=== PATIENT | male | born 1965 | race African-American/Black ===

== ENCOUNTER 2016-08-12 13:52 | Emergency (ER) | payer OTHER ==
[~2016-08-12] VITALS: Ht 177.8 cm; Wt 106.6 kg
[~2016-08-12 13:52] MED LIST: BC POWDER PACK1 EAC1 PO; BENADRYL50 MG PO; BUPROPION XL150 MG PO; CYCLOBENZAPRINE10 MG PO; DESYREL 150 MG150 MG PO; ENDOCET 5-3251 EACH PO; FLEXERIL10 MG PO; GABAPENTIN100 MG PO; GEMFIBROZIL600 MG PO; HALOBETASOL PRO15 GM TP; KETOCONAZOLE60 GM TP; LISINOPRIL40 MG PO; LYRICA100 MG PO; MELOXICAM7.5 MG PO; NAPROSYN500 MG PO; NAPROXEN500 MG PO; OMEPRAZOLE20 MG PO; PEPCID20 MG PO; PERCOCET 5/31 TABLET PO; PREDNISONE10 M1 PO; QUETIAPINE; QUETIAPINE FUM100 MG; QUETIAPINE FUM100 MG PO; RANITIDINE HCL300 MG PO; ROBITUSSIN DM118 ML PO; SEROQUEL100 MG; SEROQUEL200 MG PO; SEROQUEL50 MG PO; TRAMADOL HCL50 MG PO; ZANTAC150 MG PO; ZIPRASIDONE HCL40 MG PO; ZOLPIDEM TARTRA10 MG PO; ~No Medications
[2016-08-12 15:37] LABS: HEMATOCRIT 42.3 % (38.0-50.0); MCH 31.4 PG (29.0-34.0); MCHC 32.6 G/DL (30.0-36.0); MCV 96.1 FL (86-99); MEAN PLAT.VOLUME 9.9 uM^3 (9.0-12.4); PLATELET COUNT 175 K/uL (156-360); RBC DIS.WIDTH-SD 43.8 % (39-53); WHITE BLOOD COUNT 7.1 K/uL (4.1-10.2)
[2016-08-12 15:49] LABS: CHLORIDE 108 mEq/L (99-109); POTASSIUM 4.1 mEq/L (3.7-5.4); SODIUM 142 mEq/L (136-147)
[2016-08-12 15:51] LABS: GLUCOSE 93 mg/dL (70-99)
[2016-08-12 15:53] LABS: ANION GAP 6 MEQ/L (2-14); TOTAL BILIRUBIN 0.7 mg/dL (0.0-1.0)
[2016-08-12 15:55] LABS: ALKALINE PHOSPHATASE 74 IU/L (3-129); GFR ESTIMATE (CALCULATED) > 59 mL/min/
[2016-08-12 15:56] LABS: UREA NITROGEN (BUN) 9 mg/dL (9-23)
[2016-08-12 15:57] LABS: DIRECT BILIRUBIN 0.3 mg/dL (0.0-0.3); TROP-I INTERPRETATION NEGATIVE; TROPONIN-I < 0.01 ng/mL (0.0-0.30)
[2016-08-12 15:58] LABS: LIPASE 44 U/L (1.0-51.0)
[2016-08-12] MEDS ORDERED: BENTYL20 MG PO (16:29)
[2016-08-12] MEDS ORDERED: PERCOCET 5/31 TABLET PO (16:29)
[2016-08-12] MEDS ORDERED: ZOFRAN ODT4 MG PO (16:29)
[2016-08-12 16:53] VITALS: BP 152/90
== END 2016-08-12 16:55 | disposition home or self-care (01) ==
LOC: EME 13:52
PROVIDERS: Nurse Practitioner Family
DX: R10.11 Right upper quadrant pain (principal); K80.50 Calculus of bile duct without cholangitis or cholecystitis without obstruction; F10.10 Alcohol abuse, uncomplicated; F17.200 Nicotine dependence, unspecified, uncomplicated; R42 Dizziness and giddiness; R07.9 Chest pain, unspecified; I10 Essential (primary) hypertension
CPT/HCPCS: 71020; 76705; 80048; 80076; 83690; 84484; 85027; 93005; 99281; 99284

== ENCOUNTER 2016-08-25 18:30 | Emergency (ER) | payer OTHER ==
[~2016-08-25] VITALS: Ht 177.8 cm; Wt 105.2 kg
[~2016-08-25 18:30] MED LIST changes: +BENTYL20 MG PO; +ZOFRAN ODT4 MG PO
[2016-08-25 19:40] LABS: HEMATOCRIT 46.1 % (38.0-50.0); MCH 31.7 PG (29.0-34.0); RBC DIS.WIDTH-SD 42.7 % (39-53); WHITE BLOOD COUNT 6.2 K/uL (4.1-10.2)
[2016-08-25 19:44] LABS: MEAN PLAT.VOLUME 10.1 uM^3 (9.0-12.4); PLATELET COUNT 254 K/uL (156-360)
[2016-08-25 19:48] LABS: ADD MIUA? NO; BILIRUBIN NEGATIVE; BLOOD NEGATIVE; COLOR YELLOW ((YELLOW)); GLUCOSE (STRIP) NEGATIVE; KETONES NEGATIVE; LEUKOCYTES NEGATIVE; NITRITE NEGATIVE; PROTEIN (STRIP) NEGATIVE; SPECIFIC GRAVITY 1.015 (1.000-1.030); UCUL ADDED? NO; UROBILINOGEN 0.2 MG/DL (0.2-1.0)
[2016-08-25 19:48] LABS: CHLORIDE 108 mEq/L (99-109); POTASSIUM 4.3 mEq/L (3.7-5.4); SODIUM 143 mEq/L (136-147)
[2016-08-25 19:51] LABS: GLUCOSE 97 mg/dL (70-99)
[2016-08-25 19:52] LABS: ANION GAP 8 MEQ/L (2-14)
[2016-08-25 19:53] LABS: TOTAL BILIRUBIN 0.8 mg/dL (0.0-1.0)
[2016-08-25 19:54] LABS: ALKALINE PHOSPHATASE 88 IU/L (3-129); GFR ESTIMATE (CALCULATED) 55 mL/min/
[2016-08-25 19:55] LABS: UREA NITROGEN (BUN) 8 mg/dL (9-23)
[2016-08-25 21:43] VITALS: BP 123/73
== END 2016-08-25 21:30 | disposition home or self-care (01) ==
LOC: EME 18:30 → RME 18:30
DX: K59.00 Constipation, unspecified (principal); R10.31 Right lower quadrant pain
CPT/HCPCS: 74176; 80053; 81003; 85027; 99281; 99284

== ENCOUNTER 2016-11-03 09:42 | Day surgery (SDC) | payer OTHER ==
[~2016-11-03] VITALS: Ht 177.8 cm; Wt 104.3 kg
[~2016-11-03 09:42] MED LIST changes: +NORVASC5 MG PO; +PRILOSEC20 MG PO
[2016-11-03 10:17] VITALS: BP 137/93
[2016-11-03] MEDS ORDERED: TRAMADOL HCL50 MG PO (13:35)
[2016-11-03] MEDS ORDERED: COLACE100 MG PO (13:35)
[2016-11-03 14:50] VITALS: BP 153/95
[2016-11-03 15:50] VITALS: BP 137/87
== END 2016-11-03 15:50 | disposition home or self-care (01) ==
LOC: SDC
DX: K80.10 Calculus of gallbladder with chronic cholecystitis without obstruction (principal); K42.9 Umbilical hernia without obstruction or gangrene; K76.0 Fatty (change of) liver, not elsewhere classified; K66.0 Peritoneal adhesions (postprocedural) (postinfection); I10 Essential (primary) hypertension; E78.5 Hyperlipidemia, unspecified; F17.210 Nicotine dependence, cigarettes, uncomplicated; Z88.5 Allergy status to narcotic agent; Z91.018 Allergy to other foods
CPT/HCPCS: 88304; 93005; J1100; J1170; J1885; J2250; J2405; J3010

== ENCOUNTER 2016-11-07 14:01 | Emergency (ER) | payer OTHER ==
[~2016-11-07] VITALS: Ht 177.8 cm; Wt 100.9 kg
[~2016-11-07 14:01] MED LIST changes: +COLACE100 MG PO
[2016-11-07 14:38] VITALS: BP 156/90
== END 2016-11-07 14:51 | disposition home or self-care (01) ==
LOC: EME 14:01
DX: Z09 Encounter for follow-up examination after completed treatment for conditions other than malignant neoplasm (principal); Z90.49 Acquired absence of other specified parts of digestive tract; K59.00 Constipation, unspecified
CPT/HCPCS: 99281; 99283

== ENCOUNTER 2017-01-04 12:46 | Observation (INO) | payer OTHER ==
[~2017-01-04] VITALS: Ht 177.8 cm; Wt 103.7 kg
[2017-01-04 14:25] LABS: EOSINOPHIL (%) 3.6 % (0-5); EOSINOPHIL COUNT 0.2 K/uL (0-0.3); HEMATOCRIT 41.8 % (38.0-50.0); INSTRUMENT ABS NEUTROPHIL CT 1.7 K/uL; LYMPHOCYTE COUNT 2.4 K/uL (1.0-2.8); MCH 31.9 PG (29.0-34.0); MCHC 33.5 G/DL (30.0-36.0); MCV 95.2 FL (86-99); MONOCYTE (%) 9.4 % (3-12); MONOCYTE COUNT 0.4 K/uL (0-0.8); NEUTROPHIL (%) 36.3 % (45-76); NEUTROPHIL COUNT 1.7 K/uL (1.8-6.4); PLATELET COUNT 180 K/uL (156-360); RBC DIS.WIDTH-CV 12.5 % (11.8-14.6); RBC DIS.WIDTH-SD 44.4 % (39-53); RED BLOOD COUNT 4.39 M/uL (4.00-5.50); WHITE BLOOD COUNT 4.7 K/uL (4.1-10.2)
[2017-01-04 14:36] LABS: CHLORIDE 109 mEq/L (99-109); POTASSIUM 4.3 mEq/L (3.7-5.4); SODIUM 139 mEq/L (136-147)
[2017-01-04 14:38] LABS: GLUCOSE 101 mg/dL (70-99)
[2017-01-04 14:39] LABS: ANION GAP 4 MEQ/L (2-14)
[2017-01-04 14:40] LABS: TOTAL BILIRUBIN 0.5 mg/dL (0.0-1.0)
[2017-01-04 14:41] LABS: ALKALINE PHOSPHATASE 73 IU/L (3-129)
[2017-01-04 14:42] LABS: GFR ESTIMATE (CALCULATED) > 59 mL/min/
[2017-01-04 14:43] LABS: UREA NITROGEN (BUN) 8 mg/dL (9-23)
[2017-01-04 14:45] LABS: LIPASE 37 U/L (1.0-51.0)
[2017-01-04 14:47] LABS: TROP-I INTERPRETATION NEGATIVE; TROPONIN-I < 0.01 ng/mL (0.0-0.30)
[2017-01-04 17:27] LABS: D-DIMER ELISA < 150.00 ng/mLDDU (<230)
[2017-01-04] MEDS ORDERED: ASPIRIN81 M2 PO (17:36)
[2017-01-04] MEDS ORDERED: PROAIR HFA8.5 GM IH (17:37)
[2017-01-04 18:13] VITALS: BP 157/82
[2017-01-04 18:19] LABS: ADD MIUA? NO; BILIRUBIN NEGATIVE; BLOOD NEGATIVE; COLOR YELLOW ((YELLOW)); GLUCOSE (STRIP) NEGATIVE; KETONES NEGATIVE; LEUKOCYTES NEGATIVE; NITRITE NEGATIVE; PROTEIN (STRIP) NEGATIVE; SPECIFIC GRAVITY 1.013 (1.000-1.030)
[2017-01-04 18:21] LABS: HDL CHOLESTEROL 42 MG/DL (Desirable>=40); LDL CHOLESTEROL 89 mg/dL (Desirable<100); NON-HDL CHOLESTEROL 102 mg/dL (Desirable<160); SAMPLE HEMOLYSIS CHECK 0; SAMPLE ICTERIC CHECK 0; SAMPLE LIPEMIA CHECK 0; TOTAL CHOLESTEROL 144 mg/dL (Desirable<200); TRIGLYCERIDES 64 MG/DL (Normal: <150)
[2017-01-04 19:53] VITALS: BP 119/55
[2017-01-04 20:00] VITALS: BP 127/60
[2017-01-04 20:20] LABS: TROP-I INTERPRETATION NEGATIVE; TROPONIN-I 0.02 ng/mL (0.0-0.30)
[2017-01-05] VITALS: BP 132/78
[2017-01-05 02:02] LABS: TROP-I INTERPRETATION NEGATIVE; TROPONIN-I < 0.01 ng/mL (0.0-0.30)
[2017-01-05 04:00] VITALS: BP 120/96
[2017-01-05 05:43] LABS: HEMATOCRIT 38.8 % (38.0-50.0); MCH 33.1 PG (29.0-34.0); MCV 97.2 FL (86-99); MEAN PLAT.VOLUME 10.7 uM^3 (9.0-12.4); PLATELET COUNT 176 K/uL (156-360); RBC DIS.WIDTH-CV 12.7 % (11.8-14.6); RBC DIS.WIDTH-SD 45.6 % (39-53); RED BLOOD COUNT 3.99 M/uL (4.00-5.50); WHITE BLOOD COUNT 5.3 K/uL (4.1-10.2)
[2017-01-05 05:57] LABS: ANION GAP 4 MEQ/L (2-14); CHLORIDE 108 MEQ/L (99-109); GFR ESTIMATE (CALCULATED) > 59 mL/min/; GLUCOSE 96 mg/dL (70-99); POTASSIUM 4.5 MEQ/L (3.7-5.4); SAMPLE HEMOLYSIS CHECK 0; SAMPLE ICTERIC CHECK 0; SAMPLE LIPEMIA CHECK 0; SODIUM 141 MEQ/L (136-147); UREA NITROGEN (BUN) 13 mg/dL (9-23)
[2017-01-05 07:22] VITALS: BP 115/76
[2017-01-05 16:00] VITALS: BP 151/80
[2017-01-05 18:57] VITALS: BP 140/77
[2017-01-06 00:07] VITALS: BP 133/82
[2017-01-06 04:22] VITALS: BP 121/64
[2017-01-06 12:22] VITALS: BP 131/74
== END 2017-01-06 12:32 | disposition home or self-care (01) ==
LOC: EME 12:46 → EDOF 16:41 → 5WEST 16:41 → ENRESERV 16:42 → 5WEST 18:06
PROVIDERS: Internal Medicine; Physician Assistant
DX: R07.9 Chest pain, unspecified (principal); G89.29 Other chronic pain; M54.5 Low back pain; I10 Essential (primary) hypertension; E78.5 Hyperlipidemia, unspecified; G54.2 Cervical root disorders, not elsewhere classified; Z82.49 Family history of ischemic heart disease and other diseases of the circulatory system; F17.210 Nicotine dependence, cigarettes, uncomplicated; F14.10 Cocaine abuse, uncomplicated; Z83.3 Family history of diabetes mellitus
CPT/HCPCS: 71010; 72148; 78452; 80048; 80053; 80061; 81003; 83690; 84484; 85025; 85027; 85379; 93005; 93017; 93306; 99281; 99285; A9500; G0378; G8978 GP CJ; G8979 GP CH; G8987 GO CI; G8988 GO CH; J1650; J2785

== ENCOUNTER 2017-10-30 21:28 | Emergency (ER) | payer OTHER ==
[~2017-10-30] VITALS: Ht 177.8 cm; Wt 103.1 kg
[~2017-10-30 21:28] MED LIST changes: +ASPIRIN81 M2 PO; +KLONOPIN0.5 M1 PO; +PROAIR HFA8.5 GM IH
[2017-10-30] MEDS ORDERED: ULTRACET1 TABLET PO (23:20)
[2017-10-30] MEDS ORDERED: NAPROXEN500 MG PO (23:20)
[2017-10-30] MEDS ORDERED: FLEXERIL10 MG PO (23:56)
[2017-10-31 00:10] VITALS: BP 160/94
== END 2017-10-31 00:14 | disposition home or self-care (01) ==
LOC: EME 21:28
DX: M54.31 Sciatica, right side (principal); R07.89 Other chest pain; I10 Essential (primary) hypertension; F17.200 Nicotine dependence, unspecified, uncomplicated; Z88.6 Allergy status to analgesic agent; Z88.5 Allergy status to narcotic agent
CPT/HCPCS: 71046; 72100; 73502; 93005; 99281; 99284; J3010; J8540

== ENCOUNTER 2017-12-20 15:25 | Emergency (ER) | payer OTHER ==
[~2017-12-20] VITALS: Ht 177.8 cm; Wt 102.5 kg
[~2017-12-20 15:25] MED LIST changes: +ULTRACET1 TABLET PO
[2017-12-20] MEDS ORDERED: MOTRIN800 MG PO (16:32)
[2017-12-20] MEDS ORDERED: LIDODERM 5% P1 PATCH TD (16:32)
[2017-12-20] MEDS ORDERED: FLEXERIL10 MG PO (16:32)
[2017-12-20 16:41] VITALS: BP 132/90
== END 2017-12-20 16:42 | disposition home or self-care (01) ==
LOC: EME 15:25
DX: S39.012A Strain of muscle, fascia and tendon of lower back, initial encounter (principal); M54.41 Lumbago with sciatica, right side; M54.42 Lumbago with sciatica, left side; G89.29 Other chronic pain; X58.XXXA Exposure to other specified factors, initial encounter; I10 Essential (primary) hypertension; J45.909 Unspecified asthma, uncomplicated; Z79.82 Long term (current) use of aspirin; F17.200 Nicotine dependence, unspecified, uncomplicated
CPT/HCPCS: 99281; 99283

== ENCOUNTER 2017-12-24 23:49 | Inpatient (IN) | payer OTHER ==
[~2017-12-24] VITALS: Ht 177.8 cm; Wt 101.4 kg
[~2017-12-24 23:49] MED LIST changes: +LIDODERM 5% P1 PATCH TD; +MOTRIN800 MG PO
[2017-12-25 00:43] LABS: HEMATOCRIT 43.7 % (38.0-50.0); MCH 33.1 PG (29.0-34.0); MCHC 34.3 G/DL (30.0-36.0); MCV 96.5 FL (86-99); PLATELET COUNT 202 K/uL (156-360); RBC DIS.WIDTH-CV 12.8 % (11.8-14.6); RBC DIS.WIDTH-SD 45.1 % (39-53); RED BLOOD COUNT 4.53 M/uL (4.00-5.50); WHITE BLOOD COUNT 8.8 K/uL (4.1-10.2)
[2017-12-25 00:53] LABS: CHLORIDE 116 mEq/L (99-109); POTASSIUM 4.5 mEq/L (3.7-5.4); SODIUM 147 mEq/L (136-147)
[2017-12-25 00:54] LABS: GLUCOSE 94 mg/dL (70-99)
[2017-12-25 00:58] LABS: CREATININE 2.9 mg/dL (0.6-1.3); GFR ESTIMATE (CALCULATED) 30 mL/min/ (58.99-99999)
[2017-12-25 00:59] LABS: UREA NITROGEN (BUN) 14 mg/dL (9-23)
[2017-12-25 01:04] LABS: TROP-I INTERPRETATION NEGATIVE; TROPONIN-I < 0.01 ng/mL (0.0-0.30)
[2017-12-25 02:13] LABS: SERUM ETHYL ALCOHOL 30 mg/dL
[2017-12-25 03:57] LABS: ALBUMIN 3.6 g/dL (3.2-4.8)
[2017-12-25 04:00] LABS: TOTAL PROTEIN 5.8 g/dL (6.4-8.3)
[2017-12-25 04:02] LABS: TOTAL BILIRUBIN 0.6 mg/dL (0.0-1.0)
[2017-12-25 04:03] LABS: ALKALINE PHOSPHATASE 70 IU/L (3-129)
[2017-12-25 04:05] LABS: AST (GOT) 24 IU/L (2-34)
[2017-12-25 04:06] LABS: ALT (GPT) 32 IU/L (3-49); DIRECT BILIRUBIN 0.2 mg/dL (0.0-0.3)
[2017-12-25 04:07] LABS: LIPASE 27 U/L (1.0-51.0)
[2017-12-25 04:43] LABS: URIC ACID 6.3 mg/dL (3.1-9.2)
[2017-12-25 04:44] LABS: CREATINE KINASE 150 IU/L (1-294)
[2017-12-25 05:00] VITALS: BP 115/75
[2017-12-25 07:13] VITALS: BP 127/77
[2017-12-25 08:02] LABS: TROP-I INTERPRETATION NEGATIVE; TROPONIN-I < 0.01 ng/mL (0.0-0.30)
[2017-12-25 10:58] VITALS: BP 100/58
[2017-12-25 13:27] LABS: TROP-I INTERPRETATION NEGATIVE; TROPONIN-I < 0.01 ng/mL (0.0-0.30)
[2017-12-25] MEDS ORDERED: ULTRAM50 MG PO (14:19)
[2017-12-25] MEDS ORDERED: ERGOCALCIF50000 UNIT PO (14:19)
[2017-12-25] MEDS ORDERED: LIDODERM 5% P1 PATCH TD (14:20)
[2017-12-25] MEDS ORDERED: BENTYL20 MG PO (14:21)
[2017-12-25 14:57] VITALS: BP 104/60
[2017-12-25 15:46] LABS: APPEARANCE CLEAR ((CLEAR)); BILIRUBIN NEGATIVE; BLOOD NEGATIVE; COLOR YELLOW ((YELLOW)); GLUCOSE (STRIP) NEGATIVE; KETONES NEGATIVE; LEUKOCYTES NEGATIVE; NITRITE NEGATIVE; PROTEIN (STRIP) NEGATIVE; SPECIFIC GRAVITY 1.014 (1.000-1.030); UROBILINOGEN 0.2 MG/DL (0.2-1.0)
[2017-12-25 16:18] LABS: BENZODIAZEPINES, URINE SCREEN Negative (200 ng/mL)
[2017-12-25 20:00] VITALS: BP 111/58
[2017-12-26] VITALS: BP 116/65
[2017-12-26 04:00] VITALS: BP 119/72
[2017-12-26 06:50] LABS: HEMATOCRIT 38.1 % (38.0-50.0); MCH 32.7 PG (29.0-34.0); MCHC 34.1 G/DL (30.0-36.0); MCV 95.7 FL (86-99); PLATELET COUNT 176 K/uL (156-360); RBC DIS.WIDTH-CV 12.5 % (11.8-14.6); RBC DIS.WIDTH-SD 43.8 % (39-53); RED BLOOD COUNT 3.98 M/uL (4.00-5.50); WHITE BLOOD COUNT 5.2 K/uL (4.1-10.2)
[2017-12-26 07:09] VITALS: BP 111/61
[2017-12-26 07:10] LABS: CHLORIDE 112 MEQ/L (99-109); GFR ESTIMATE (CALCULATED) > 59 mL/min/ (58.99-99999); GLUCOSE 96 mg/dL (70-99); POTASSIUM 4.1 MEQ/L (3.7-5.4); SODIUM 144 MEQ/L (136-147); UREA NITROGEN (BUN) 9 mg/dL (9-23)
[2017-12-26 07:13] LABS: CREATININE 1.5 MG/DL (0.6-1.3)
[2017-12-26 11:05] VITALS: BP 109/72
[2017-12-26 15:03] VITALS: BP 120/70
[2017-12-26 19:23] VITALS: BP 127/80
[2017-12-27 00:18] VITALS: BP 126/76
[2017-12-27 03:50] VITALS: BP 121/81
[2017-12-27 06:53] LABS: CHLORIDE 110 MEQ/L (99-109); CREATININE 1.5 MG/DL (0.6-1.3); GFR ESTIMATE (CALCULATED) > 59 mL/min/ (58.99-99999); GLUCOSE 101 mg/dL (70-99); POTASSIUM 3.8 MEQ/L (3.7-5.4); SODIUM 144 MEQ/L (136-147); UREA NITROGEN (BUN) 8 mg/dL (9-23)
[2017-12-27 07:01] VITALS: BP 124/90
[2017-12-27] MEDS ORDERED: Thiamine,Vitamin B1 PO (07:49)
[2017-12-27] MEDS ORDERED: FOLIC ACID1 MG PO (07:49)
[2017-12-27] MEDS ORDERED: THERAGRAN1 TABLET PO (07:49)
== END 2017-12-27 10:57 | disposition home or self-care (01) | DRG 684 ==
LOC: EME → EDBD 23:49 → EDOF 12-25 03:40 → 5SOUTH 12-25 03:40 → ENRESERV 12-25 03:42 → 5SOUTH 12-25 04:51
PROVIDERS: Emergency Medicine; Hospitalist; Internal Medicine
DX: N17.9 Acute kidney failure, unspecified (principal); A08.4 Viral intestinal infection, unspecified; F17.200 Nicotine dependence, unspecified, uncomplicated; I10 Essential (primary) hypertension; E78.5 Hyperlipidemia, unspecified; G89.29 Other chronic pain; M54.9 Dorsalgia, unspecified; K29.20 Alcoholic gastritis without bleeding; R07.89 Other chest pain; E86.0 Dehydration; G62.9 Polyneuropathy, unspecified; F14.10 Cocaine abuse, uncomplicated; Z71.41 Alcohol abuse counseling and surveillance of alcoholic; J45.909 Unspecified asthma, uncomplicated; E86.1 Hypovolemia
CPT/HCPCS: 71046; 74176; 80048; 80076; 80306 90; 81003; 82436; 82550; 82550 91; 83690; 83735; 84133; 84300; 84484; 84550; 85027; 93005; 99281; 99285; G0480; J1644; J7030; J7120; S0028

== ENCOUNTER 2018-01-10 00:48 | Inpatient (IN) | payer OTHER ==
[~2018-01-10] VITALS: Ht 177.8 cm; Wt 103.7 kg
[~2018-01-10 00:48] MED LIST changes: +ERGOCALCIF50000 UNIT PO; +FOLIC ACID1 MG PO; +THERAGRAN1 TABLET PO; +Thiamine,Vitamin B1 PO; +ULTRAM50 MG PO
[2018-01-10 01:29] LABS: HEMATOCRIT 39.7 % (38.0-50.0); HEMOGLOBIN 13.5 G/DL (12.5-16.6); MCH 32.8 PG (29.0-34.0); MCV 96.6 FL (86-99); PLATELET COUNT 214 K/uL (156-360); RBC DIS.WIDTH-CV 13.6 % (11.8-14.6); RBC DIS.WIDTH-SD 47.9 % (39-53); RED BLOOD COUNT 4.11 M/uL (4.00-5.50); WHITE BLOOD COUNT 7.8 K/uL (4.1-10.2)
[2018-01-10 01:40] LABS: CHLORIDE 113 mEq/L (99-109); POTASSIUM 4.1 mEq/L (3.7-5.4); SODIUM 148 mEq/L (136-147)
[2018-01-10 01:42] LABS: GLUCOSE 98 mg/dL (70-99)
[2018-01-10 01:45] LABS: SERUM ETHYL ALCOHOL 195 mg/dL
[2018-01-10 01:46] LABS: CREATININE 1.6 mg/dL (0.6-1.3); GFR ESTIMATE (CALCULATED) 59 mL/min/ (58.99-99999)
[2018-01-10 01:47] LABS: UREA NITROGEN (BUN) 13 mg/dL (9-23)
[2018-01-10 02:00] LABS: AMPHETAMINE NEGATIVE (500 ng/mL); BARBITURATES NEGATIVE (200 ng/mL); BENZODIAZEPINES PRESUMPTIVE POSITIVE (150 ng/mL); BUPRENORPHINE NEGATIVE (10 ng/mL); COCAINE PRESUMPTIVE POSITIVE (150 ng/mL); METHADONE NEGATIVE (200 ng/mL); METHAMPHETAMINE NEGATIVE (500 ng/mL); OPIATES (MORPHINE) NEGATIVE (100 ng/mL); OXYCODONE NEGATIVE (100 ng/mL); PHENCYCLIDINE NEGATIVE (25 ng/mL); PROPOXYPHENE NEGATIVE (300 ng/mL); THC CANNABINOIDS NEGATIVE (50 ng/mL); TRICYCLIC ANTIDEPRESSANTS NEGATIVE (300 ng/mL)
[2018-01-10 02:34] LABS: BENZODIAZEPINES, URINE SCREEN POSITIVE (200 ng/mL)
[2018-01-10 09:39] VITALS: BP 133/91
[2018-01-10 17:10] VITALS: BP 140/92
[2018-01-11 08:07] VITALS: BP 148/89
[2018-01-11 08:34] LABS: CHLORIDE 108 MEQ/L (99-109); CREATININE 1.3 MG/DL (0.6-1.3); GFR ESTIMATE (CALCULATED) > 59 mL/min/ (58.99-99999); GLUCOSE 102 mg/dL (70-99); POTASSIUM 4.1 MEQ/L (3.7-5.4); SODIUM 141 MEQ/L (136-147); UREA NITROGEN (BUN) 10 mg/dL (9-23)
[2018-01-11 16:19] VITALS: BP 129/85
[2018-01-12 08:14] VITALS: BP 139/80
[2018-01-12] MEDS ORDERED: BUPROPION XL150 MG PO (09:22)
[2018-01-12] MEDS ORDERED: Thiamine,Vitamin B1 PO (09:23)
[2018-01-12] MEDS ORDERED: FOLIC ACID1 MG PO (09:23)
== END 2018-01-12 11:30 | disposition other institution (70) | DRG 885 ==
LOC: EME → EDBD 00:48 → EDOF 07:30 → 1WEST 07:30 → ENRESERV 09:25 → 1WEST 09:25
PROVIDERS: Psychiatry & Neurology Psychiatry
PROC: HZ2ZZZZ Detoxification Services for Substance Abuse Treatment (ICD-10-PCS; principal; 2018-01-10)
DX: F33.1 Major depressive disorder, recurrent, moderate (principal); F10.239 Alcohol dependence with withdrawal, unspecified; F10.229 Alcohol dependence with intoxication, unspecified; F14.229 Cocaine dependence with intoxication, unspecified; R45.851 Suicidal ideations; I10 Essential (primary) hypertension; E78.5 Hyperlipidemia, unspecified; F17.210 Nicotine dependence, cigarettes, uncomplicated; G89.29 Other chronic pain; M54.9 Dorsalgia, unspecified; G62.9 Polyneuropathy, unspecified; Z91.5 Personal history of self-harm; Z91.19 Patient's noncompliance with other medical treatment and regimen
CPT/HCPCS: 80048; 84999; 85027; 90839; 99281; 99285; G0480